=== PATIENT | male | born 1990 | race Caucasian/White ===

== ENCOUNTER → 2020-07-29 | Outpatient (CLI) | payer OTHER | LOC: SLEEP 14:21 | DX: Z53.9 Procedure and treatment not carried out, unspecified reason (principal) ==

== ENCOUNTER → 2020-08-21 | Outpatient (CLI) | payer OTHER | LOC: SLEEP 14:10 | DX: R06.83 Snoring (principal); K21.9 Gastro-esophageal reflux disease without esophagitis; K58.0 Irritable bowel syndrome with diarrhea; R53.83 Other fatigue; R10.84 Generalized abdominal pain; M54.2 Cervicalgia | CPT/HCPCS: 95810 ==